=== PATIENT | male | born 1965 | race Hispanic/Latino ===

== ENCOUNTER 2018-12-23 19:22 | Emergency (ER) | payer OTHER ==
[2018-12-23] MEDS ORDERED: Lidocaine 1% w/Epinephrine 1:100K 20 ML VIAL ONE (19:42)
== END 2018-12-23 20:12 ==
LOC: EEVIPCON 19:22 → ERS 19:22
DX: L02.413 Cutaneous abscess of right upper limb (principal)
CPT/HCPCS: 10060; J2001